=== PATIENT | male | born 1930 | race Caucasian/White ===

== ENCOUNTER 2016-12-19 08:27 | Day surgery (SDC) | payer MEDICARE, BC ==
[2016-12-14 15:09] VITALS: BMI 24.3
[~2016-12-19 08:27] MED LIST: LACTATED RINGERS 1,000 ML IV SCH; LIDOCAINE 1% 20 ML VIAL (10MG/ML) FOR IV START INTRADERMA PRN
[2016-12-19] MEDS ORDERED: INDOMETHACIN 50MG SUPPOSITORY RECTAL ONE (09:00)
[2016-12-19] MEDS ORDERED: LEVOFLOXACIN 500MG-D5W PMX 500 MG in DEXTROSE/WATER 1 100ML.BAG IVPB NR (09:00)
[2016-12-19 09:08] LABS: Glucose,Whole Blood 199 mg/dL (75-99)
[2016-12-19 09:09] VITALS: RESP 16; TEMP 97.6
[2016-12-19 09:39] LABS: INR 1.2 (<1.1); Partial Thromboplastin Time 26.6 sec (22.0-30.0)
[2016-12-19 09:41] LABS: Calcium 8.7 mg/dL (8.4-10.2); Digoxin 1.1 ng/mL; Potassium 5.9 mmol/L (3.5-5.1); Total Bilirubin 5.1 mg/dL (0.2-1.3); Total Protein 6.7 g/dL (6.3-8.2)
[2016-12-19 09:43] LABS: CH 32.6; CHCM 30.4; HCT 37.3 % (39.0-53.0); HDW 2.54; HGB 11.6 gm/dL (13.0-17.5); Hypochromasia Moderate; MCH 33.6 pg (25.0-35.0); MCHC 31.1 g/dL (31.0-37.0); MCV 108.1 fL (80.0-100.0); Macrocytosis Marked; Mean Platelet Volume 8.3; RBC 3.45 m/uL (4.30-5.90); RDW 15.7 % (11.5-15.5); WBC 10.3 k/uL (3.8-10.6); WBC (Perox) 12.41
[2016-12-19] MEDS ORDERED: PROPOFOL 10 MG/ML 20 ML VIAL IV ONE (09:44)
[2016-12-19] MEDS ORDERED: IOHEXOL 300 MG/ML 50 ML BOTTLE INJ ONE (09:55)
--- NOTE | 2016-12-19 10:17 | P.PCN ---
Date of Procedure: 12/19/16 Preoperative Diagnosis: Postoperative Diagnosis: Procedure(s) Performed: Brief history: Patient is a 86 year-old pleasant 8 male, scheduled for an ERCP as part of evaluation of abnormal labs and painless jaundice for the last 2 weeks' duration. He was incidentally noted to have elevated alkaline phosphatase to 700 with minimal elevation of serum transaminases approximately a month ago. Further investigations with an MRI/MRCP revealed mild biliary ductal dilation and hydrops of the gallbladder. In the meantime he developed jaundice with a bilirubin of 5.1 and elevated alkaline phosphatase up to 1700. Because of clinical suspicion for biliary obstruction he scheduled for an ERCP today to evaluate further. Patient remains asymptomatic. Procedure performed: ERCP with brush cytology and CBD stent placement Preoperative diagnoses: Painless jaundice and abnormal MRCP showing dilated CBD and hydrops of the gallbladder IV sedation per anesthesia: Procedure: After informed consent was obtained from the patient and after the risks benefits and complications including bleeding perforation and pancreatitis explained in detail the patient was brought into the endoscopy unit. The patient was placed in prone position and IV conscious sedation was administered by anesthesia under continuous monitoring. The Olympus side-viewing duodenoscope was then inserted into the mouth and esophagus intubated without any difficulty. The scope was gradually advanced into the stomach and duodenum. The major papilla was identified without any difficulty. Initial cannulation resulted in opacification of the common bile duct that appeared normal. There was a tight stricture noted involving the common hepatic duct into the bifurcation with significant proximal biliary ductal dilation. The stricture measured about 2-3 cm in length and was very irregular. At this time a guidewire was passed through the catheter and a breast cytology was performed of the proximal common hepatic duct stricture. Following this a 7-[place] 7 cm [place] stent was placed in the proximal biliary system with adequate drainage of the bile. The pancreatic duct was not cannulated during the entire procedure and the patient tolerated the procedure well. 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 Status post brush cytology and CBD stent placement as described above. Pancreatic duct not cannulated Recommendations: The findings of this examination were discussed with the patient as well as a family. At this time will await the brush cytology results and obtain CA 19-9 levels. He will be seen in office in a week. Implants: Indications for Procedure: Operative Findings: Description of Procedure:
[2016-12-19 10:53] LABS: Add Differential Manual Differential
[2016-12-19 10:55] LABS: Metamyelocytes % 0.5 %; Nucleated Red Blood Cells 0 /100 WBC (0-0); Total Cells Counted 200
[2016-12-19 11:21] VITALS: BP 134/66; PULSE 54
--- NOTE | 2016-12-19 11:32 | FL ---
Fluoroscopy HISTORY: Common bile duct obstruction 1.55 minutes fluoroscopy time supplied to the referring clinician. 6 intraoperative C-arm images doc ument the procedure. See dictated report from gastroenterology.
== END 2016-12-19 11:50 | disposition home or self-care (01) ==
LOC: ORWHC2ENDO 08:27
PROVIDERS: ATTEND Internal Medicine Gastroenterology
DX: K83.1 Obstruction of bile duct (principal); K83.8 Other specified diseases of biliary tract; R17 Unspecified jaundice; K82.1 Hydrops of gallbladder; I10 Essential (primary) hypertension; E78.5 Hyperlipidemia, unspecified; E11.9 Type 2 diabetes mellitus without complications; Z79.1 Long term (current) use of non-steroidal anti-inflammatories (NSAID); Z79.84 Long term (current) use of oral hypoglycemic drugs; Z79.82 Long term (current) use of aspirin; Z79.899 Other long term (current) drug therapy
CPT/HCPCS: 93005; 88104; 88305; 80053; 80162; 85025; 85610; 85730; 86301; 74330; 43274; 43261; J1956; J2704; Q9967; C2625; C1769